=== PATIENT | male | born 1985 | race Caucasian/White ===

== ENCOUNTER → 2019-08-09 | Outpatient (CLI) | payer OTHER ==
--- NOTE | 2019-08-09 08:15 | US ---
EXAMINATION TYPE: US abdomen complete DATE OF EXAM: 08/09/2019 COMPARISON: NONE CLINICAL HISTORY: R10.82 Generalized abdominal pain. Intermittent pain around umbilicus x 8 months EXAM MEASUREMENTS: Liver Length: 14.6 cm Gallbladder Wall: 0.2 cm CBD: 0.3 cm Spleen: 11.0 cm Right Kidney: 10.3 x 4.4 x 5.8 cm Left Kidney: 10.9 x 6.6 x 5.5 cm Pancreas: visualized portions wnl, tail limited by overlying midline bowel gas Liver: wnl Gallbladder: wnl Evidence for sonographic Hernandez's sign: no CBD: wnl Spleen: visualized portions wnl, limited by overlying bowel gas Right Kidney: fullness of renal pelvis Left Kidney: wnl Upper IVC: wnl Abd Aorta: wnl Scanned patient's area of concern midline abdomen at umbilicus: no abnormality seen at this time. The liver is homogenous. The intrahepatic portion of the IVC and proximal abdominal aorta are within normal limits. There is no evidence of cholelithiasis. Common bile duct is unremarkable. The visu alized portions of the pancreas are homogenous. The spleen is unremarkable. Kidneys are symmetric a nd free of hydronephrosis. No renal lesions are seen. IMPRESSION: Unremarkable abdominal ultrasound. Additional images were obtained in the periumbilical r egion in the area the patient's pain without cystic or solid mass identified.
== END | disposition home or self-care (01) ==
LOC: RADUSWWP 06:58
PROVIDERS: ATTEND Family Medicine
DX: R10.84 Generalized abdominal pain (principal)
CPT/HCPCS: 76700

== ENCOUNTER → 2020-03-02 | Outpatient (CLI) | payer OTHER ==
--- NOTE | 2020-03-02 14:21 | CT ---
EXAMINATION TYPE: CT sinus wo con DATE OF EXAM: 03/02/2020 COMPARISON: None HISTORY: Right sided facial congestion and pressure. CT DLP: 667.3 mGycm. Automated Exposure Control for Dose Reduction was Utilized. TECHNIQUE: CT scan of the sinuses is performed without contrast, axial images are obtained, coronal r eformatted images are also reviewed. FINDINGS: Near complete opacification of the right maxillary sinus is present, there is an oval area of low-attenuation which may represent a mucous retention cyst, there is mucoperiosteal thickening wi thin the bilateral maxillary sinuses, sphenoid sinus, ethmoid air cells and frontal sinus. Ostiomeata l unit on the left is patent, the right there is abnormal soft tissue present, questionable bone eros ion involving the medial maxillary sinus wall, abnormal soft tissue extends along the middle and infe rior turbinates into the nasopharynx, there is lobular abnormal soft tissue present at this level cece suring approximately 2.7 x 2.3 x 4.8 cm with extension into the turbinates and towards the torus tuba rius on the right. Visualized portion of mastoid air cells show no abnormal opacification. The globes are intact bilate rally. IMPRESSION: Soft tissue mass as described on the right, evidence of chronic sinusitis
== END | disposition home or self-care (01) ==
LOC: RADCTMAIN 12:53
PROVIDERS: ATTEND Otolaryngology
DX: J32.9 Chronic sinusitis, unspecified (principal)
CPT/HCPCS: 70486